=== PATIENT | male | born 1965 | race Caucasian/White ===

== ENCOUNTER 2021-06-27 09:07 | Outpatient (RCR) | payer BC, OTHER | END 2021-08-05 | disposition home or self-care (01) | LOC: ONC 09:07 | PROVIDERS: ATTEND Radiology Radiation Oncology | DX: C61 Malignant neoplasm of prostate (principal); I10 Essential (primary) hypertension; E78.5 Hyperlipidemia, unspecified; Z98.890 Other specified postprocedural states | CPT/HCPCS: 99205 ==

== ENCOUNTER 2021-09-27 13:09 | Outpatient (RCR) | payer BC | END 2021-10-03 | disposition home or self-care (01) | LOC: ONC 13:09 | PROVIDERS: ATTEND Radiology Radiation Oncology | DX: C61 Malignant neoplasm of prostate (principal); I10 Essential (primary) hypertension; E78.5 Hyperlipidemia, unspecified; Z98.890 Other specified postprocedural states | CPT/HCPCS: 76873 ==

== ENCOUNTER 2021-10-12 05:35 | Outpatient (CLI) | payer BC ==
[~2021-10-12] VITALS: Ht 188 cm; Wt 113.6 kg
[2021-10-13] MEDS ORDERED: LISI40TA9 PO (14:42)
[2021-10-13] MEDS ORDERED: [UNRECOGNIZED DRUG - CODE] IC (14:42)
== END 2021-10-13 14:45 | disposition home or self-care (01) ==
LOC: PREOP 05:35
PROVIDERS: ATTEND Radiology Radiation Oncology
DX: Z01.818 Encounter for other preprocedural examination (principal)

== ENCOUNTER 2021-10-19 10:02 | Day surgery (SDC) | payer BC ==
[2021-10-19] VITALS (9 sets, daily range): BP systolic 117–141; BP diastolic 70–93
[~2021-10-19] VITALS: Ht 188 cm; Wt 113.6 kg
[~2021-10-19 10:02] MED LIST: LISI40TA9 PO; [UNRECOGNIZED DRUG - CODE] IC
--- NOTE | 2021-10-19 10:22 | Progress Note-Pre Operative ---
Pre-Operative Progress Note H&P Reviewed The H&P was reviewed, patient examined and no changes noted. Date Seen by Provider: Oct 19, 2021 Time Seen by Provider: : Date H&P Reviewed: Oct 19, 2021 Time H&P Reviewed: : Pre-Operative Diagnosis: Prostate cancer cT1c, PSA 12.8, [place] 7 (4+3) TERESA MERCADO MD Oct 19, 2021 10:22
[2021-10-19] MEDS ORDERED: CIPR-226 PO (10:24)
[2021-10-19] MEDS ORDERED: ACET1TAB43 PO (10:24)
--- NOTE | 2021-10-19 10:27 | Discharge Inst-Simple/Standard ---
Discharge Inst-Standard Reconcile Patient Problems Problems Reviewed?: Yes Discharge Medications New, Converted or Re-Newed RX: Other (scripts have been called into [email or web address] in [place] on 10/17/21) Patient Instructions/Follow Up Plan of Care/Instructions/FU: 1)one month post implant scan at [facility] cancer center 11/17/21 at 1:00 p.m. 2)one month follow up with Dr. Ventura 11/21/21 at 1:00 p.m. Activity as Tolerated: Yes Discharge Diet: No Restrictions Other Inst to Patient 1) Instruct patient on flower catheter care. 2) Instruct patient on self flower catheter removal Sunday10/24/21. TERESA MERCADO MD Oct 19, 2021 10:27
[2021-10-19] MEDS: LACTATED RINGERS 1,000 ML IV PRN ×3 (10:54→13:58)
[2021-10-19] MEDS ORDERED: MIDAZOLAM 2 MG/2 ML (VERSED) VIAL ONE (12:21)
[2021-10-19] MEDS ORDERED: fentaNYL INJ 100 MCG/2 ML AMP ONE (12:22)
[2021-10-19] MEDS ORDERED: LIDOCAINE PF 2% 5 ML (XYLOCAINE) VIAL ONE (12:23)
[2021-10-19] MEDS ORDERED: ONDANSETRON 4 MG/2 ML (SDV) Z0FRAN ONE (12:23)
[2021-10-19] MEDS ORDERED: proPOfol 200 MG/20 ML (DIPRIVAN) VIAL IV ONE (12:23)
[2021-10-19] MEDS ORDERED: BACITRACIN OINTMENT 28 GM TUBE ONE (12:45)
[2021-10-19] MEDS ORDERED: SEVOFLURANE (ULTANE) 15 ML INHAL SOLN ONE (13:43)
--- NOTE | 2021-10-19 14:07 | Progress Note-Post Operative ---
Post-Operative Progess Note Surgeon (s)/Mechanical Assembly (s) Surgeon TERESA MERCADO MD Mechanical Assembly: Chantell CAROLINA MD Pre-Operative Diagnosis Prostate cancer cT1c, PSA 12.8, [place] 7 (4+3) Post-Operative Diagnosis Same as pre-op Procedure & Operative Findings Date of Procedure 10/19/21 Procedure Performed/Findings (1) 67% Cesium 131 permanent prostate seed implant (2) Injection of biodegradable hydrogel prostate-rectal spacer utilizing the [employer] system (3) Cystogram Prostate volume 39.5 cc Anesthesia Type General Estimated Blood Loss Estimated blood loss (mL): Minimal Specimens/Packing Specimens Removed None Packing: None TERESA MERCADO MD Oct 19, 2021 14:07
--- NOTE | 2021-10-19 14:08 | Diagnostic Imaging Report ---
INDICATION: Fluoroscopy for brachytherapy. Fluoroscopy was provided during brachytherapy. 15 seconds of fluoroscopic time was utilized. Single image was obtained demonstrating multiple radiation seed implants within the prostate gland. There appears be contrast within the urinary bladder. IMPRESSION: Fluoroscopy during brachytherapy. Dictated by: Dictated on workstation # [id number]
== END 2021-10-19 15:30 | disposition home or self-care (01) ==
LOC: SDC 10:02
PROVIDERS: ATTEND Radiology Radiation Oncology
DX: C61 Malignant neoplasm of prostate (principal); R39.9 Unspecified symptoms and signs involving the genitourinary system; F17.290 Nicotine dependence, other tobacco product, uncomplicated
CPT/HCPCS: 55874; 55876; 76000; 76965; 77290; 77318; 77332; 77370; 77470; 77778; 87081; C1715; C1889; C2643

== ENCOUNTER 2021-11-17 12:43 | Outpatient (RCR) | payer BC ==
[~2021-11-17 12:43] MED LIST changes: +ACET-11 PO; +CIPR-226 PO
== END 2021-12-03 | disposition home or self-care (01) ==
LOC: ONC 12:43
PROVIDERS: ATTEND Radiology Radiation Oncology
DX: C61 Malignant neoplasm of prostate (principal)
CPT/HCPCS: 77290; 77295

== ENCOUNTER 2021-12-30 12:45 | Outpatient (RCR) | payer BC | END 2022-01-03 | disposition home or self-care (01) | LOC: ONC 12:45 | PROVIDERS: ATTEND Radiology Radiation Oncology | DX: Z51.0 Encounter for antineoplastic radiation therapy (principal); C61 Malignant neoplasm of prostate | CPT/HCPCS: 77300; 77301; 77334; 77336; 77338; 77385; 77470 ==

== ENCOUNTER 2022-01-19 12:25 | Outpatient (RCR) | payer BC | END 2022-02-02 | disposition home or self-care (01) | LOC: ONC 12:25 | PROVIDERS: ATTEND Radiology Radiation Oncology | DX: Z51.0 Encounter for antineoplastic radiation therapy (principal); C61 Malignant neoplasm of prostate | CPT/HCPCS: 77385; G0463; 77336 ==